=== PATIENT | male | born 1985 | race Hispanic/Latino ===

== ENCOUNTER 2018-04-20 16:43 | Inpatient (IN) | payer OTHER ==
[2018-04-20 17:27] LABS: BASO % 0.4 % (0.0-2.0); HEMOGLOBIN 13.8 g/dL (12.0-18.0); LYMPH % 12.9 % (20.0-40.0); MEAN CELL VOLUME 86.4 fL (80.0-94.0); MEAN CORPUSCULAR HEMOGLOBIN 30.2 pg (27.0-31.0); MEAN PLATELET VOLUME 8.3 fL (7.2-11.7); MONO # 0.5 K/uL (0.0-0.8); MONO % 5.7 % (0.0-10.0); NEUT # 6.5 K/uL (1.8-7.0); RBC 4.56 Mil/uL (4.40-5.90); RED CELL DISTRIBUTION WIDTH 12.9 % (11.5-14.5); WHITE BLOOD COUNT 8.1 K/uL (4.8-10.8)
--- NOTE | 2018-04-20 17:34 | C.PDOC ---
History Of Present Illness 32 y/o male presents to the ER requesting detox from heroin. Patient states that he last used heroin 2 days ago. Patient reports that he also used marijuana. Denies having suicidal ideation, homicidal ideation, and active physical complaints. Time Seen by Provider: 04/20/18 17:05 Chief Complaint (Nursing): Substance Abuse History Per: Patient History/Exam Limitations: no limitations Past Medical History Reviewed: Historical Data, Nursing Documentation, Vital Signs Vital Signs: Last Vital Signs Temp 98.3 F 04/20/18 16:56 Pulse 82 04/20/18 16:56 Resp 20 04/20/18 16:56 BP 120/79 04/20/18 16:56 Pulse Ox 100 04/20/18 18:24 - Medical History PMH: No Chronic Diseases Surgical History: No Surg Hx Family History: States: No Known Family Hx - Social History Hx Alcohol Use: No Hx Substance Use: Yes - Immunization History Hx Tetanus Toxoid Vaccination: (unk) Hx Influenza Vaccination: No Hx Pneumococcal Vaccination: No Review Of Systems Except As Marked, All Systems Reviewed And Found Negative. Constitutional: Negative for: Fever, Chills Physical Exam - Physical Exam Appears: No Acute Distress Skin: Normal Color, Warm, Dry Head: Atraumatic, Normacephalic Eye(s): bilateral: Normal Inspection Nose: Normal Oral Mucosa: Moist Neck: Supple Chest: Symmetrical Cardiovascular: Rhythm Regular Respiratory: Normal Breath Sounds, No Rales, No Rhonchi, No Wheezing Gastrointestinal/Abdominal: Normal Exam, Soft, No Tenderness, No Guarding, No Rebound Neurological/Psych: Oriented x3, Normal Speech ED Course And Treatment - Laboratory Results Result Diagrams: 04/20/18 17:24 04/20/18 17:24 Lab Interpretation: No Acute Changes ECG: Interpreted By Me, Viewed By Me ECG Rhythm: Sinus Rhythm ECG Interpretation: No Acute Changes Interpretation Of ECG: NS at 82 bpm with normal axis and no ischemic changes, no priors available for comparison Rate From EC O2 Sat by Pulse Oximetry: 100 (RA) Pulse Ox Interpretation: Normal Medical Decision Making Medical Decision Making: Impression:Substance Abuse Plan: * Labs * UA * Crisis Evaluation Progress: 1752 All labs reviewed and unremarkable. In my clinical judgment patient is medically cleared and stable for psychiatric admission. community development worker contacted for evaluation. As per CW patient, Dr El requests an EKG. 1817 EKG shows normal sinus at 82bpm, with no ischemic changes. [address] El accepts patient to detox service for opiate use disorder Disposition - Disposition Disposition: HOSPITALIZED Disposition Time: 18:26 Condition: STABLE - POA Present On Arrival: None - Clinical Impression Clinical Impression: Heroin use disorder, severe - PA / DIRECTOR DERMATOLOGY / Resident Statement MD/DO has reviewed & agrees with the documentation as recorded. - Scribe Statement The provider has reviewed the documentation as recorded by the Scribe Marina Solis Provider Attestation All medical record entries made by the Scribe were at my direction and personally dictated by me. I have reviewed the chart and agree that the record accurately reflects my personal performance of the history, physical exam, medical decision making, and the department course for this patient. I have also personally directed, reviewed, and agree with the discharge instructions and disposition. Decision To Admit - Pt Status Changed To: Hospital Disposition Of: Inpatient - Admit Certification Admit to Inpatient:: After my assessment, the patient will require hospitalization for at least two midnights. This is because of the severity of symptoms shown, intensity of services needed, and/or the medical risk in this patient being treated as an outpatient. - InPatient: Physician Admission Certification: I certify that this patient requires 2 or more midnights of care for the following reason:: DR El accepts patient to detox service for opiate use - . Bed Request Type: Detox Admitting Physician: Diogo El Patient Diagnosis: Heroin use disorder, severe
[2018-04-20 17:38] LABS: URINE BILIRUBIN NEGATIVE (NEGATIVE); URINE BLOOD NEGATIVE (NEGATIVE); URINE CLARITY Clear (Clear); URINE COLOR Yellow (YELLOW); URINE GLUCOSE (UA) NORMAL (Normal); URINE LEUKOCYTE ESTERASE NEG Leu/uL (Negative); URINE PROTEIN NEGATIVE (NEGATIVE); URINE UROBILINOGEN NORMAL mg/dL (0.2-1.0)
[2018-04-20 17:44] LABS: ALB/GLOB RATIO 1.4 (1.0-2.1); ALBUMIN 4.9 g/dL (3.5-5.0); ALT/SGPT 25 U/L (21-72); AST/SGOT 19 U/L (17-59); BLOOD UREA NITROGEN 14 mg/dL (9-20); GFR AFRICAN-AMERICAN > 60; GFR NON-AFRICAN AMERICAN > 60
[2018-04-20 17:50] LABS: BARBITURATES, UR NEGATIVE (NEGATIVE); BENZODIAZEPINES, UR NEGATIVE (NEGATIVE); OPIATES, UR NEGATIVE (NEGATIVE); PHENCYCLIDINE, UR NEGATIVE (NEGATIVE)
--- NOTE | 2018-04-20 18:45 | PCM.BM ---
<Kayode Mcgill - Last Filed: 04/20/18 18:44> Treatment Plan Problems - Problems identified on initial assessmt potential for opiate withdrawal Date Initiated: 04/20/18 Time Initiated: 18:44 Status: Active Treatment assets and liabiliti Patient Assests: adapts well Patient Liabilities: substance abuse, medical problems - Milieu Protocol Maintain good personal hygiene: daily Encourage regular showers, daily Remind patient to perform daily oral care, daily Assist patient to perform ADL's Conduct patient checks and document Observation sheet: Q15 minutes Maintain personal safety: every shift Educate patient to report safety concerns to staff, every shift Monitor environment for contraband/sharps Medication safety: Monitor for expected outcome, potential side effects: every shift, Assess barriers to learning: every shift, Assess readiness for medication education: every shift <Diogo El - Last Filed: 04/22/18 08:56> - Diagnosis (1) Opioid use disorder, severe, dependence Status: Acute Interventions: 04/22/18 08:56 * Assess 7x/week regarding severity of withdrawal * Educate regarding risks, benefits, side effects and alternatives of medications * Use Motivational Interviewing for abstinence * Use CBT for relapse prevention * Medication management for withdrawal symptoms * Encourage medication assisted treatment *
[2018-04-20] MEDS ORDERED: Aluminum Hydroxide/Magnesium Hydroxide Susp (30 mL) PO PRN (21:56)
[2018-04-20] MEDS ORDERED: Buprenorphine Hydrochloride 2 mg SL ONE (23:26)
[2018-04-21] MEDS ORDERED: Buprenorphine Hydrochloride 2 mg SL ONE (00:30)
[2018-04-21] MEDS: Buprenorphine Hydrochloride 2 mg SL SCH (09:33)
--- NOTE | 2018-04-21 16:11 | PCM.PSYCH ---
Initial Psychiatric Evaluation - Initial Psychiatric Evaluation Type of Admission: Voluntary Legal Status: Capacity Chief Complaint (in patient's own words): "I need detox from heroin." History of Present Illness and Precipitating Events: Pt is seen, chart reviewed, case discussed with staff. Pt is a 32 y/o male who presented to the ED for heroin detox; pt lives in [place] with his father, is with no children, and does not work; pts last job was 2.5 months ago working at a [employer]. Pt reports that he had been turned down by ALL 6 of the lower level inpatient detoxes because they had waitlists and were full. Pt has a hx of heroin abuse which began 4 years ago; pt uses 6 or more bags/day intranasal and IV into his R arm; pt last used 3 days ago; pt states that he is given fentanyl instead, which puts him high risk for OD. Our UDS does not show fentanyl. Pt reports that he began abusing painkillers 9 years ago after a rhinosplasty left him with a scratched cornea; he was prescribed Percocet with led him to heroin use. Pt admits to smoking marijuana a few times/month, pt denies cocaine, PCP, LSD, or current pill abuse. Pt has overdosed 3x already. Pt has never been to detox before; pt has been to rehab 1x 3 years ago at [facility] in [place], [place] after he was hospitalized. When asked about his mood pt states that he is realistic and down (low self- esteem, anhedonic) Pt does not yet describe and display significant withdrawal sxs. Past med hx is positive for mitral valve regurgitation, had an operation and still has tachycardia. He takes metoprolol but not regularly due to heavy drug use. He also puts self at risk for endocarditis by IV use. Pt also reports depression due to substance use Family hx includes a cousin with drug abuse and depression. Pt reports that he is open to inpatient after detox Current Medications: Active Medications Generic Name Dose Route Start Last Admin Trade Name Freq PRN Reason Stop Dose Admin Al Hydrox/Mg Hydrox/Simethicone 30 ml 04/20/18 21:56 Maalox 30 Ml PO TID PRN Indigestion / Heartburn Buprenorphine HCl 8 mg 04/21/18 10:00 04/21/18 09:33 Subutex SL 04/25/18 09:59 8 mg DAILY LINA Administration Taper Clonidine HCl 0.1 mg 04/20/18 21:56 Catapres PO Q8 PRN COWS Score More or Equal to 5 Gabapentin 300 mg 04/21/18 10:00 04/21/18 09:33 Neurontin PO 300 mg BID LINA Administration Hydroxyzine HCl 50 mg 04/20/18 21:57 04/20/18 22:11 Atarax PO 50 mg Q6H PRN Administration Anxiety Ibuprofen 600 mg 04/20/18 21:57 04/21/18 12:03 Motrin Tab PO 600 mg Q6H PRN Administration Pain, moderate (4-7) Loperamide HCl 2 mg 04/20/18 21:56 Imodium PO Q8 PRN Diarrhea Metoprolol Tartrate 25 mg 04/21/18 15:00 04/21/18 15:45 Lopressor PO 25 mg DAILY LINA Administration Mirtazapine 15 mg 04/21/18 22:00 Remeron PO HS LINA Ondansetron HCl 4 mg 04/20/18 21:56 Zofran Tab PO Q8 PRN Nausea/Vomiting Trazodone HCl 100 mg 04/20/18 21:57 04/20/18 22:11 Desyrel PO 100 mg HS PRN Administration Insomnia Past Psychiatric History - Past Psychiatric History Previous Treatment History: None [facility] [place] [place] Pertinent Medical Hx (Current Medical&Sleep Prob, Allergies): Allergies Allergy/AdvReac Type Severity Reaction Status Date / Time Bleach (Sodium Hypochlorite) Allergy Verified 04/20/18 17:01 cefazolin [From Ancef] Allergy Verified 04/20/18 17:01 clindamycin Allergy Verified 04/20/18 17:01 lavender (Lavandula Allergy Verified 04/20/18 17:01 angustifolia) No Known Home Med 04/20/18 Review of Systems - Psychiatric Psychiatric: Abnormal Sleep Pattern, Anhedonia, Anxiety, Depression, Difficulty Concentrating. absent: Auditory Hallucinations, Confusion, Hallucinations, Homicidal Ideation, Irritability, Panic Attacks, Paranoia, Suicidal Ideation Mental Status Examination - Personal Presentation Personal Presentation: Looks older than stated age - Affect Affect: Broad - Motor Activity Motor Activity: Calm - Reliability in Providing Information Reliability in Providing Information: Good - Speech Speech: Organized - Mood Mood: Depressed - Formal Thought Process Formal Thought Process: No Impairment - Obsessions/Compulsions Obsessions: No Compulsions: No - Cognitive Functions Orientation: Person, Place, Situation, Time Sensorium: Alert Attention/Concentration: Attentive Abstract Thinking: Dickens Estimate of Intelligence: Average Judgement: Intact, as evidence by: Good judgement Memory: Recent intact, as evidence by: Ability to recall events of the day, Remote intact, as evidenced by: Abilit to recall sig. life events - Risk Risk: Withdrawal, Diminished functioning - Strength & Assets Inventory Strength & Assets Inventory: Family support, Cooperative - Limitations Limitations: Other DSM 5 DX - DSM 5 DSM 5 Diagnosis: Opioid Withdrawal Opioid Use Disorder, severe Substance-induced depression, severe r/o MDD- single, severe - Recommended/Plan of Treatment Treatment Recommendations and Plan of Treatment: Taper with Subutex Gabapentin for augmentation if needed As needed medications Atarax 50 mg for anxiety, Motrin 600 mg for pain, Remeron 15 mg for depressive sxs All risks, benefits and alternatives of the meds discussed, and the pt agreed and understood. Attend groups and activities Supportive therapy and psychoeducation MT for abstinence CBT for relapse prevention Encourage MAT Refer to rehab or IOP, and self-help groups Smoking cessation with MT Nicotine patch if needed 35 min Projected ELOS: 4-5 days Prognosis: good w treatment - Smoking Cessation Smoking Cessation Initiated: Yes
[2018-04-22] MEDS: Buprenorphine Hydrochloride 2 mg SL SCH (09:34)
[2018-04-23] MEDS: Buprenorphine Hydrochloride 2 mg SL SCH (09:19)
--- NOTE | 2018-04-23 19:18 | PCM.PYCHPN ---
Psychiatric Progress Note - Psychiatric Progress Note Patient seen today, length of contact: 15 min Patient Chief Complaint: I HAVE DECIDED TO GIVE CONTROL TO MY FATHER Problems Identified/Issues Discussed: PT SEEN AND EXAMINED DISCUSSED WITH STAFF DISCUSSED WITH PT HIS AFTERCARE PLANS HE WILL BE GOING TO [facility] IN [place], HIS FATHER WILL DRIVE HIM THERE.ALSO TALKED ABOUT PAWS Medical Problems: NONE REPORTED Diagnostic Results: REVIEWED DSM 5 Symptoms Update: IRRITABILITY INSOMNIA Medication Change: No Medical Record Reviewed: Yes Mental Status Examination - Cognitive Function Orientation: Person, Place, Situation, Time Memory: Intact Attention: WNL Concentration: WNL Association: WNL Fund of Knowledge: WNL - Mood Mood: Depressed, Anxious - Affect Affect: Broad - Speech Speech: Appropriate - Formal Thought Process Formal Thought Process: No Impairment - Suicidal Ideation Suicidal Ideation: No - Homicidal Ideation Homicidal Ideation: No Goal/Treatment Plan - Goal/Treatment Plan Need for Continued Stay: Remain at risks for inpatient hospitalization, Discharge may exacerbated symptoms Progress Toward Problem(s) and Goals/Treatment Plan: OPIOID WITHDRAWAL SUBUTEX TAPER OPIOID USE DISORDER SEVERE [place] CBT GROUP [facility]IEU AND RECREATIONAL THERAPY SUPPORTIVE PSYCHOTHERAPY Estimated Date of D/C: 04/25/18 - Smoking Cessation Smoking Cessation Initiated: No
--- NOTE | 2018-04-23 19:26 | PCM.PYCHPN ---
Psychiatric Progress Note - Psychiatric Progress Note Patient seen today, length of contact: 15 min Patient Chief Complaint: I AM LIVING WITH MY FATHER AND IF I DON'T DO WHAT HE WANTS I'LL BE HOMELESS Problems Identified/Issues Discussed: PT SEEN AND EXAMINED DISCUSSED WITH STAFF DISCUSSED WITH PT WITHDRAWAL SYMPTOMS Medical Problems: NONE REPORTED Diagnostic Results: REVIEWED DSM 5 Symptoms Update: MUSCLE ACHES JOINT PAIN TEMPERATURE SWINGS Medication Change: Yes (SUBUTEX TAPER) Medical Record Reviewed: Yes Mental Status Examination - Cognitive Function Orientation: Person, Place, Time Memory: Intact Attention: WNL Concentration: WNL Association: WNL - Mood Mood: Depressed, Anxious - Affect Affect: Broad - Speech Speech: Appropriate - Formal Thought Process Formal Thought Process: No Impairment - Suicidal Ideation Suicidal Ideation: No - Homicidal Ideation Homicidal Ideation: No Goal/Treatment Plan - Goal/Treatment Plan Need for Continued Stay: Remain at risks for inpatient hospitalization, Discharge may exacerbated symptoms Progress Toward Problem(s) and Goals/Treatment Plan: OPIOID WITHDRAWAL SUBUTEX TAPER OPIOID USE DISORDER SEVERE [place] CBT SUPPORTIVE PSYCHOTHERAPY GROUP MILIEU AND RECREATIONAL THERAPY Estimated Date of D/C: 04/25/18 - Smoking Cessation Smoking Cessation Initiated: No
[2018-04-24] MEDS: Buprenorphine Hydrochloride 2 mg SL SCH (09:33)
--- NOTE | 2018-04-24 15:58 | PCM.PYCHPN ---
Psychiatric Progress Note - Psychiatric Progress Note Patient seen today, length of contact: 15 min Patient Chief Complaint: "I am feeling better." Problems Identified/Issues Discussed: Pt is seen, chart reviewed, case discussed with staff. Pt is compliant with medications and reports no side-effects. Symptoms are improving but needs more time to stabilize; pt slept well through the night; pt denies n/v/d or tremors. Pt attends groups and activities. Support given, psycho-education provided. After care discussed. Pt is attending [facility] inpatient rehab after discharge tomorrow. Medication Change: Yes (SUBUTEX TAPER) Medical Record Reviewed: Yes Mental Status Examination - Cognitive Function Orientation: Person, Place, Time Memory: Intact Attention: WNL Concentration: WNL Association: WNL - Mood Mood: Depressed, Anxious - Affect Affect: Broad - Speech Speech: Appropriate - Formal Thought Process Formal Thought Process: No Impairment - Suicidal Ideation Suicidal Ideation: No - Homicidal Ideation Homicidal Ideation: No Goal/Treatment Plan - Goal/Treatment Plan Need for Continued Stay: Remain at risks for inpatient hospitalization, Discharge may exacerbated symptoms Progress Toward Problem(s) and Goals/Treatment Plan: Continue medications Support and psychoeducation daily Attend groups and activities daily After care planning by JASON 15 min Estimated Date of D/C: 04/25/18
[2018-04-24 16:38] VITALS: RESP 18
--- NOTE | 2018-04-25 08:37 | PCM.PYCHDC ---
Mental Status Examination - Mental Status Examination Orientation: Person, Place, Situation, Time Memory: Intact Mood: Depressed, Anxious Affect: Constricted Speech: Appropriate Attention: WNL Concentration: WNL Association: WNL Fund of Knowledge: WNL Formal Thought Process: No Impairment Suicidal Ideation: No Current Homicidal Ideation?: No Discharge Summary - Discharge Note Consultations:: List each consultation separately and include: 1. Reason for request. 2. Findings. 3. Follow-up Summary of Hospital Course include:: 1. Description of specific treatment plan utilized for patients during their course of treatmen. 2. Summarize the time- course for resolution of acute symptoms and/or regressed behaviors. 3. Describe issues identified and worked on during hospitalization. 4. Describe medication utilized. 5. Describe medical problems identified and treated. 6. Reassessment of suicide risk Summary of Hospital Course: Pt is seen, chart reviewed, case discussed with staff. On admission: Pt is a 32 y/o male who presented to the ED for heroin detox; pt lives in [place] with his father, is with no children, and does not work; pts last job was 2.5 months ago working at a [employer]. Pt reports that he had been turned down by ALL 6 of the lower level inpatient detoxes because they had waitlists and were full. Pt has a hx of heroin abuse which began 4 years ago; pt uses 6 or more bags/day intranasal and IV into his R arm; pt last used 3 days ago; pt states that he is given fentanyl instead, which puts him high risk for OD. Our UDS does not show fentanyl. Pt reports that he began abusing painkillers 9 years ago after a rhinosplasty left him with a scratched cornea; he was prescribed Percocet with led him to heroin use. Pt admits to smoking marijuana a few times/month, pt denies cocaine, PCP, LSD, or current pill abuse. Pt has overdosed 3x already. Pt has never been to detox before; pt has been to rehab 1x 3 years ago at [facility] in [place], [place] after he was hospitalized. When asked about his mood pt states that he is realistic and down (low self- esteem, anhedonic) Pt does not yet describe and display significant withdrawal sxs. Past med hx is positive for mitral valve regurgitation, had an operation and still has tachycardia. He takes metoprolol but not regularly due to heavy drug use. He also puts self at risk for endocarditis by IV use. Pt also reports depression due to substance use Family hx includes a cousin with drug abuse and depression. Pt reports that he is open to inpatient after detox Hospital course: The pt was admitted and started on treatment with psychotherapy, support, psychoeducation and medications. VT and CBT used. The pt attended groups and activities, as well as milieu therapy. All the risks and benefits of medications are discussed and the patient understood and agreed. The pt improved with the treatments provided. After care discussed with the patient. He will go to [facility], his fa will drive. - Final Diagnosis (DSM 5) Condition upon Discharge: STABLE DSM 5: Opioid Withdrawal Opioid Use Disorder, severe Substance-induced depression, severe MDD- single, severe Mitral valve dz Disposition: HOME/ ROUTINE Follow-up Treatment Plan: Continue below medications after discharge. Imitrex prn added per his request, risks discussed. Follow after care plan as discussed. Use relapse prevention skills Return to ER or call 911 if suicidal, homicidal or symptoms relapse. Stay away from stress, alcohol and drugs. See primary doctor regularly and get labs. Prescriptions/Medication Reconciliation: Cyclobenzaprine [Flexeril] 5 mg PO BID #60 tab Gabapentin [Neurontin] 300 mg PO BID #60 cap Metoprolol Tartrate [Lopressor] 25 mg PO DAILY #30 tab Mirtazapine [Remeron] 15 mg PO HS #30 tab SUMAtriptan [Imitrex Tab] 25 mg PO DAILY PRN #5 tab PRN Reason: migraines traZODone [Desyrel] 100 mg PO HS PRN #30 tab PRN Reason: Insomnia - Smoking Cessation Smoking Cessation Medication prescribed: No - Antipsychotic Medications Pt discharged on 2 or more routine antipsychotic medications: No
[2018-04-25 09:07] VITALS: BP 124/80
[2018-04-25 11:02] VITALS: PULSE 73; TEMP 98; O2SAT 100
== END 2018-04-25 11:10 | disposition home or self-care (01) | DRG 745 ==
LOC: C.ER 16:43 → C.7D 18:26
PROVIDERS: ADMIT Psychiatry & Neurology Psychiatry; ATTEND Psychiatry & Neurology Psychiatry
PROC: HZ52ZZZ Individual Psychotherapy for Substance Abuse Treatment, Cognitive-Behavioral (ICD-10-PCS; principal; 2018-04-20)
PROC: HZ59ZZZ Individual Psychotherapy for Substance Abuse Treatment, Supportive (ICD-10-PCS; 2018-04-20)
PROC: HZ56ZZZ Individual Psychotherapy for Substance Abuse Treatment, Psychoeducation (ICD-10-PCS; 2018-04-20)
PROC: HZ2ZZZZ Detoxification Services for Substance Abuse Treatment (ICD-10-PCS; 2018-04-20)
DX: F11.23 Opioid dependence with withdrawal (principal); F12.90 Cannabis use, unspecified, uncomplicated; F32.9 Major depressive disorder, single episode, unspecified; G47.00 Insomnia, unspecified; I34.0 Nonrheumatic mitral (valve) insufficiency; R00.0 Tachycardia, unspecified